=== PATIENT | female | born 1970 | race Caucasian/White ===

== ENCOUNTER 2023-09-29 07:04 | Day surgery (SDC) | payer MEDICAID ==
[~2023-09-29] VITALS: Ht 162.6 cm; Wt 90.7 kg
[2023-09-29] MEDS ORDERED: MEPERIDINE 100 MG INJ. 100 MG/ML VIAL ONE (08:46)
[2023-09-29] MEDS ORDERED: MIDAZOLAM HCL 5 MG/5 ML VIAL ONE (08:46)
[2023-09-29 08:55] VITALS: O2SAT 98
[2023-09-29 10:42] VITALS: BP_SYST 128; PULSE 85; RESP 18
== END 2023-09-29 10:12 | disposition home or self-care (01) ==
LOC: SDS 07:04 → SMU 07:14 → SDS 10:12
PROVIDERS: ATTEND Internal Medicine
DX: Z12.11 Encounter for screening for malignant neoplasm of colon (principal); D12.2 Benign neoplasm of ascending colon; K76.0 Fatty (change of) liver, not elsewhere classified; Z80.0 Family history of malignant neoplasm of digestive organs; K64.8 Other hemorrhoids; K21.9 Gastro-esophageal reflux disease without esophagitis; E78.5 Hyperlipidemia, unspecified; E28.2 Polycystic ovarian syndrome; Z88.0 Allergy status to penicillin; Z79.899 Other long term (current) drug therapy
CPT/HCPCS: 45380; 99152; 88305; 99153; G0378; J2250; J2175